=== PATIENT | female | born 1960 | race Caucasian/White ===

== ENCOUNTER 2019-03-21 09:14 | Day surgery (SDC) | payer OTHER ==
[~2019-03-21] VITALS: Ht 165.1 cm; Wt 72.6 kg
[~2019-03-21 09:14] MED LIST: COZAAR100 MG PO; LOVASTATIN20 MG PO; OMEPRAZOLE20 MG PO
--- NOTE | 2019-03-21 11:28 | NUR ---
03/21/19 1128 Noemy Shirley 1115- PT ARRIVES TO PACU AROUSABLE TO VOICE. FALLS INSTANTLY TO SLEEP WHEN NOT BEING TALKED TO. RESP EVEN AND UNLABORED. OXYGEN SAT HIGH 90'S TO 100% ON 3L VIA NC. 1121- DR. ERICKSON AT THE BEDSIDE AND CALLS PT'S TO UPDATE HIM. 1126- OXYGEN TITRATED OFF.
--- NOTE | 2019-03-22 06:31 | OR ---
[facility] [address] [place], [place] [address] Signed DATE OF OPERATION: 03/21/2019 SURGEON: Roney Erickson MD PREOPERATIVE DIAGNOSES: 1. Personal history of colonic polyps in 2016, age 55. 2. Internal hemorrhoids. 3. Diverticulosis. 4. Tattoo in distal sigmoid colon at bleeding polypectomy site in 2016. 5. Mother of colon cancer in mid 70s. 6. Maternal aunt of colon cancer in mid 60s. POSTOPERATIVE DIAGNOSES: 1. Minimal sigmoid diverticulosis. 2. 4-mm polyp at 18 cm. 3. Tattoo at 15 cm in distal sigmoid colon. 4. Minimal internal hemorrhoids. PROCEDURE PERFORMED: Colonoscopy with hot biopsy. ESTIMATED BLOOD LOSS: None. INDICATIONS: Avelina is a 58-year-old female, asked to see me for a followup colonoscopy. Her mother and maternal aunt both of colon cancer. Avelina had two prior colonoscopies. She bled from a polypectomy site in the distal sigmoid colon back in 2015. She has a tattoo in this area. There was a small polyp left nearby at that time. She is known to have internal hemorrhoids and diverticulosis as well. She said she has no lower GI complaints currently. I gave her a pamphlet on colonoscopy. We looked at that together along with the risks including, but not limited to gas, bloating, crampy abdominal pain, bleeding, perforation requiring surgery, and missed diagnosis. We also discussed the need for IV conscious sedation. She had expressed her understanding and wished to proceed. DESCRIPTION OF PROCEDURE: Avelina was taken into our Endoscopy Suite and placed in the left lateral decubitus position. She was given 4 mg of Versed and 100 mcg of fentanyl to cover the case. A digital rectal exam was performed and she has very little if any external hemorrhoid Electronically Signed By: RONEY ERICKSON MD 03/22/19 0631 PATIENT NAME: AVELINA AMADO OPERATIVE REPORT DATE OF : 64 REPORT #: [id number] PHYSICIAN: RONEY ERICKSON MD PCP: SONAL NAJERA PA-C REPORT IS CONFIDENTIAL AND NOT TO BE RELEASED WITHOUT AUTHORIZATION [facility] [address] [place], [place] [address] Signed tissue. She had good sphincter tone. No masses. The adult colonoscope was introduced and advanced all around into the cecum under direct visualization of camera without difficulty. She had a very good prep. The scope was slowly withdrawn. We could easily see the appendiceal orifice and the ileocecal valve. We took pictures throughout for photodocumentation. She had just a tiny 4 mm polyp at 18 cm. This was easily removed with the help of hot biopsy forceps and then at 15 cm, we could see her tattoo. It was in the distal sigmoid colon. Just distal of that was the rectosigmoid junction and down into the rectum itself. The rectum was unremarkable. Upon retroflexion of the scope, she had just small internal hemorrhoid columns. The gas was then suctioned out and the colonoscope removed. Avelina tolerated the procedure quite well. RECOMMENDATIONS: I will see Avelina back in my office in 7 to 14 days to review her results. It looks like she will be on the 5-year rotation due to her personal family history. Roney Erickson MD ALB/MODL /[id number] cc: Rob Villanueva MD Copies: RONEY ERICKSON MD ~ Electronically Signed By: RONEY ERICKSON MD 03/22/19 0631 PATIENT NAME: AVELINA AMADO OPERATIVE REPORT DATE OF : 64 REPORT #: [id number] PHYSICIAN: RONEY ERICKSON MD PCP: SONAL NAJERA PA-C REPORT IS CONFIDENTIAL AND NOT TO BE RELEASED WITHOUT AUTHORIZATION
--- NOTE | 2019-03-22 11:29 | PATH ---
[facility] [address] [place], [place] [address] Signed SPECIMEN(S): A COLON POLYP AT 18 CM SPECIMEN SOURCE: A. COLON POLYP AT 18 CM CLINICAL HISTORY: Pre: History of colon polyps. Post: Diverticulosis, small internal hemorrhoids, polyp. MICROSCOPIC DESCRIPTION: Histologic sections of all submitted blocks are examined by light microscopy. These findings, together with the gross examination, support the pathologic diagnosis. FINAL PATHOLOGIC DIAGNOSIS: Colon, polyp at 18 cm, polypectomy: - Hyperplastic polyp. - Negative for dysplasia or malignancy. NAL:cml:C2NR GROSS DESCRIPTION: The specimen, labeled "CH, colon polyp at 18 cm," is received in formalin and consists of a single 0.3 cm johnson-brown tissue fragment. Specimen is entirely submitted in cassette (A1). AM (under the direct supervision of a pathologist) The Gross Description was prepared using a voice recognition system. The report was reviewed for accuracy; however, sound-alike word errors, addition and/or deletions may occur. If there is any question about this report, please contact Client Services. PERFORMING LABORATORY: The technical component was performed by [employer] [address] [place] [id number] (New Car Salesperson: Tisha Daniels MD; CLIA# [id number]). Professional interpretation was performed by [employer], [address] [address] (New Car Salesperson: Horace Thomas MD; CLIA# [id number]). Diagnostician: Linnea Godinez MD Pathologist Electronically Signed 03/22/2019 PATIENT NAME: SILVERIO AMADO PATHOLOGY DATE OF : 64 REPORT #: [id number] PHYSICIAN: BRAD SCHMITT PCP: SONAL NAJERA PA-C REPORT IS CONFIDENTIAL AND NOT TO BE RELEASED WITHOUT AUTHORIZATION [address] [place], [place] [address] Signed Copies: ~ PATIENT NAME: SILVERIO AMADO PATHOLOGY DATE OF : 64 REPORT #: [id number] PHYSICIAN: BRAD PATHOLOGY PCP: SONAL NAJERA PA-C REPORT IS CONFIDENTIAL AND NOT TO BE RELEASED WITHOUT AUTHORIZATION
== END 2019-03-21 12:00 | disposition home or self-care (01) ==
LOC: DS 09:14
PROVIDERS: Colon & Rectal Surgery
PROC: 0DBE8ZZ Excision of Large Intestine, Via Natural or Artificial Opening Endoscopic (ICD-10-PCS; principal; 2019-03-21 10:30)
DX: Z12.11 Encounter for screening for malignant neoplasm of colon (principal); K63.5 Polyp of colon; K76.0 Fatty (change of) liver, not elsewhere classified; F17.210 Nicotine dependence, cigarettes, uncomplicated; K57.30 Diverticulosis of large intestine without perforation or abscess without bleeding; K64.8 Other hemorrhoids; Z86.010 Personal history of colon polyps; Z80.0 Family history of malignant neoplasm of digestive organs; Z79.899 Other long term (current) drug therapy
CPT/HCPCS: 99153; G0500; J2250; J3010; J7121

== ENCOUNTER 2025-01-23 09:40 | Day surgery (SDC) | payer OTHER ==
[~2025-01-23] VITALS: Ht 162.6 cm; Wt 73.0 kg
[~2025-01-23 09:40] MED LIST changes: +AMLODIPINE BES2.5 MG PO; +IBLOOD GLUCOSE TEST STRIP 1 EA TEST VI PRN; +LACTATED RINGER'S 1,000 ML IV SCH; +LIDOCAINE HCL 1% 5 ML SDV INJ ONE; +LIDOCAINE HCL 2% 5 ML SDV ONE; +VITAMIN D31250 MC2 PO
[2025-01-23 10:04] VITALS: BP 141/82
--- NOTE | 2025-01-23 11:50 | NUR ---
01/23/25 1150 Raquel Rangel 1146-PATIENT ARRIVED TO PACU ON 6L MASK RR EVEN NONAROUSABLE LAYING LEFT LATERAL ABDOMEN SOFT. IVF INFUSING. SINUS BRADYCARDIA HR 50'S.
[2025-01-23 12:13] VITALS: BP 129/78
--- NOTE | 2025-01-27 15:48 | PATH ---
[facility] [address] [facility] [place], [place] [address] Signed SPECIMEN(S): A COLON POLYP, 45 CM SPECIMEN(S): B COLON POLYP, 10 CM SPECIMEN SOURCE: A. COLON POLYP, 45 CM B. COLON POLYP, 10 CM CLINICAL HISTORY: Family history of colon cancer, patient history of colon polyps, sigmoid diverticula disease, polyp 45 cm, polyp 10 cm FINAL PATHOLOGIC DIAGNOSIS: A. Colon, polyp at 45 cm, biopsy: - Larger piece: Tubular adenoma; negative for high-grade dysplasia and malignancy. - Smaller piece: Benign, unremarkable colonic mucosa. B. Colon, polyp at 10 cm, biopsy: - Hyperplastic polyp. - Negative for dysplasia and malignancy. SDL MICROSCOPIC EXAMINATION: Histologic sections of all submitted blocks are examined by light microscopy. These findings, together with the gross examination, support the pathologic diagnosis. GROSS DESCRIPTION: A. The specimen, labeled and designated "Alfa, colon polyp, 45 cm," is received in formalin and consists of two johnson soft tissue fragments, ranging from 0.2-0.3 cm. Entirely submitted in (A1). B. The specimen, labeled and designated "Alfa, colon polyp, 10 cm," is received in formalin and consists of one johnson soft tissue fragment, 0.3 cm. Entirely submitted in (B1). VB (under the direct supervision of a pathologist) The Gross Description was prepared using a voice recognition system. The report was reviewed for accuracy; however, sound-alike word errors, addition and/or deletions may occur. If there are any questions about this report, please contact Client Services. ADDITIONAL NOTES: Immunohistochemical and/or in situ hybridization studies if performed in this PATIENT NAME: SILVERIO AMADO PATHOLOGY DATE OF : 64 REPORT #: [id number] PHYSICIAN: BRAD SCHMITT PCP: SONAL NAJERA PA-C REPORT IS CONFIDENTIAL AND NOT TO BE RELEASED WITHOUT AUTHORIZATION [facility] [address] [place], [place] [address] Signed case included appropriate positive controls that reacted as expected. This test was developed and its performance characteristics determined by [facility]. It has not been cleared or approved by the U.S. Food and Drug Administration. The FDA has determined that such clearance or approval is not necessary. This test is used for clinical purposes. It should not be regarded as investigational or for research. [facility] is certified under the Clinical Laboratory Improvement Amendments of 1988 (CLIA) as qualified to perform high complexity clinical laboratory testing. PERFORMING LABORATORY: Technical component was performed by [employer], [address] [place] [id number] (CLIA# [id number]). Professional interpretation was performed by [facility], [address] [place] [id number] (CLIA#: [id number]). Diagnostician: Faith Whitlock MD Pathologist Electronically Signed 01/27/2025 Copies: ~ PATIENT NAME: SILVERIO AMADO PATHOLOGY DATE OF : 64 REPORT #: [id number] PHYSICIAN: BRAD SCHMITT PCP: SONAL NAJERA PA-C REPORT IS CONFIDENTIAL AND NOT TO BE RELEASED WITHOUT AUTHORIZATION
== END 2025-01-23 12:20 | disposition home or self-care (01) ==
LOC: DS 09:40
PROVIDERS: ATTEND Surgery
PROC: 0DBL8ZX Excision of Transverse Colon, Via Natural or Artificial Opening Endoscopic, Diagnostic (ICD-10-PCS; 2025-01-23)
PROC: 0DBP8ZX Excision of Rectum, Via Natural or Artificial Opening Endoscopic, Diagnostic (ICD-10-PCS; principal; 2025-01-23 11:20)
DX: Z12.11 Encounter for screening for malignant neoplasm of colon (principal); D12.6 Benign neoplasm of colon, unspecified; K62.1 Rectal polyp; K57.30 Diverticulosis of large intestine without perforation or abscess without bleeding; K64.9 Unspecified hemorrhoids; Z86.0101 Personal history of adenomatous and serrated colon polyps; Z80.0 Family history of malignant neoplasm of digestive organs; N18.31 Chronic kidney disease, stage 3a; I12.9 Hypertensive chronic kidney disease with stage 1 through stage 4 chronic kidney disease, or unspecified chronic kidney disease; F17.210 Nicotine dependence, cigarettes, uncomplicated; Z79.899 Other long term (current) drug therapy
CPT/HCPCS: 00811; J2003; J2704; J7121